=== PATIENT | female | born 1955 | race Caucasian/White ===

== ENCOUNTER 2016-04-14 17:15 | Emergency (ER) | payer BC ==
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
[2016-04-14] MEDS ORDERED: METOCLOPRAMIDE HCL 5 MG/ML VIAL IV ONE (17:55)
[2016-04-14] MEDS ORDERED: KETOROLAC TROMETHAMINE 30 MG/ML VIAL IV ONE (17:55)
[2016-04-14] MEDS ORDERED: diphenhydrAMINE HCL 50 MG/ML VIAL IV ONE (17:55)
[2016-04-14] MEDS ORDERED: NORMAL SALINE 1,000 ML IV ONE (17:55)
[2016-04-14] MEDS ORDERED: diphenhydrAMINE HCL 50 MG/ML VIAL ONE (17:57)
[2016-04-14] MEDS ORDERED: KETOROLAC TROMETHAMINE 30 MG/ML VIAL ONE (17:58)
[2016-04-14] MEDS ORDERED: METOCLOPRAMIDE HCL 5 MG/ML VIAL ONE (17:58)
[2016-04-14] MEDS ORDERED: ONDANSETRON HCL/PF 2 MG/ML VIAL IV ONE (18:20)
[2016-04-14] MEDS ORDERED: ONDANSETRON HCL/PF 2 MG/ML VIAL ONE (18:26)
[2016-04-14 19:21] VITALS: BP 119/69
== END 2016-04-14 19:00 | disposition home or self-care (01) ==
LOC: ER 17:15
DX: G43.009 Migraine without aura, not intractable, without status migrainosus (principal); Z72.0 Tobacco use; Z85.828 Personal history of other malignant neoplasm of skin

== ENCOUNTER 2016-05-20 13:44 | Emergency (ER) | payer BC ==
[2016-05-20] MEDS ORDERED: ACETAMINOPHEN 325 MG TABLET PO ONE (14:37)
[2016-05-20] MEDS ORDERED: NORMAL SALINE 1,000 ML IV ONE (14:37)
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
[2016-05-20 14:49] LABS: Hematocrit 40.7 % (37.0-47.0); Hemoglobin 13.7 gm/dL (12.5-16.0); Mean Cell Volume 90.8 fl (78-100); Mean Corpuscular Hemoglobin 30.6 pg (27-31); Mean Corpuscular Hgb Conc 33.7 g/dl (32-36); Mean Platelet Volume 8.8 fl (6.0-9.5); Platelet Count 272 K/mm3 (150-450); Red Blood Count 4.48 M/mm3 (4.2-5.4); Red Cell Distribution Width 13.7 % (11.5-14.0); White Blood Count 3.5 K/mm3 (4.0-10.5)
[2016-05-20 14:54] LABS: Albumin * 3.4 gm/dl (3.4-5.0); Anion Gap 11.8 mmol/L (6.8-13.8); BUN/Creatinine Ratio 10.8 (9.0-21.6); Bilirubin, Total 0.2 mg/dL (0.0-1.1); Ca. Corrected For Albumin 8.6 mg/dL (8.4-10.2); Calcium * 8.4 mg/dL (7.9-10.9); Carbon Dioxide 25.3 mmol/L (24-32.6); Potassium 4.1 mmol/L (3.4-4.6); Total Protein 7.1 gm/dL (6.2-8.2)
[2016-05-20 14:55] LABS: Total Cells Counted 100
[2016-05-20] MEDS ORDERED: ACETAMINOPHEN 325 MG TABLET ONE (15:02)
[2016-05-20 15:12] LABS: Atypical (Reactive) Lymph 6 % (0-2); Eosinophil 2 % (0-3); Lymphocyte 21 % (20-51); Monocyte 8 % (0-9); Neutrophil 63 % (42-75); Neutrophil # 2.2 K/mm3 (1.3-6.0)
[2016-05-20 15:13] LABS: Platelet Estimate Normal (NORMAL); RBC Morphology Normal (NORMAL)
[2016-05-20 15:26] VITALS: BP 127/69
[2016-05-20] MEDS ORDERED: METHYLPREDNISOLONE SOD SUCC/PF 125 MG/2 ML VIAL IV ONE (15:44)
[2016-05-20] MEDS ORDERED: METHYLPREDNISOLONE SOD SUCC/PF 125 MG/2 ML VIAL ONE (15:56)
== END 2016-05-20 16:19 | disposition home or self-care (01) ==
LOC: ER 13:44
DX: J44.0 Chronic obstructive pulmonary disease with (acute) lower respiratory infection (principal); J20.9 Acute bronchitis, unspecified; Z72.0 Tobacco use; Z85.828 Personal history of other malignant neoplasm of skin